=== PATIENT | female | born 1990 | race Caucasian/White ===

== ENCOUNTER 2018-09-16 09:20 | Emergency (ER) | payer BC ==
[2018-09-16] MEDS ORDERED: MORPHINE SULFATE 10 MG/ML INJ IV ONE (10:18)
--- NOTE | 2018-09-16 10:21 | ER Document Report ---
ED GI/ - General Chief Complaint: Lower Abdominal Pain Stated Complaint: ABDOMINAL PAIN Time Seen by Provider: 09/16/18 10:06 Primary Care Provider: DEDE CHUN MD [Primary Care Provider] - Follow up as needed Information source: Patient Notes: Patient is a 27-year-old female that presents today with some suprapubic nonradiating abdominal "labor pains" starting this morning. She states nausea with vomiting. She denies any fevers, dysuria, flank pain, diarrhea, or vaginal discharge. Patient has a Mirena and does not believe she is . No previous history of pain like this in the past. It is better when she sits up and worse when she lays flat. TRAVEL OUTSIDE OF THE [place] IN LAST 30 DAYS: No - HPI Sexual history: Active - Related Data Allergies/Adverse Reactions: No Known Allergies Allergy (Verified 09/16/18 09:21) Past Medical History - Social History Smoking Status: Former Smoker Family History: Reviewed & Not Pertinent Patient has suicidal ideation: No Patient has homicidal ideation: No Renal/ Medical History: Denies: Hx Peritoneal Dialysis Past Surgical History: Reports: Hx Tonsillectomy Review of Systems - Review of Systems Constitutional: denies: Fever EENT: denies: Eye discharge, Nose discharge Cardiovascular: denies: Chest pain, Palpitations Respiratory: denies: Short of breath Gastrointestinal: Vomiting. denies: Diarrhea Genitourinary: denies: Dysuria Skin: denies: Rash Neurological/Psychological: Other - no slurred speech -: Yes All other systems reviewed and negative Physical Exam - Vital signs Vitals: Temp Pulse Resp BP Pulse Ox 98.6 F 93 15 128/67 H 98 09/16/18 09:25 09/16/18 09:25 09/16/18 09:25 09/16/18 09:25 09/16/18 09:25 Notes: Reviewed vital signs and nursing note as charted by RN. CONSTITUTIONAL: Alert and oriented and responds appropriately to questions. Well-appearing; well-nourished HEAD: Normocephalic; atraumatic EYES: Sclerae non-icteric CARD: Regular rate and rhythm; no murmurs; symmetric distal pulses RESP: Normal chest excursion without splinting or tachypnea; breath sounds clear and equal bilaterally ABD/GI: Normal bowel sounds; non-distended; soft, tender to palpation of the suprapubic region without any rebound or guarding. No distinct right lower quadrant tenderness BACK: The back appears normal and is non-tender to palpation EXT: Normal ROM in all joints; non-tender to palpation; no edema SKIN: No acute lesions noted NEURO: CN 2-12 intact; 5/5 bilateral upper and lower extremity strength with sensation intact to light touch PSYCH: The patient's mood and manner are appropriate. Grooming and personal hygiene are appropriate. Course - Re-evaluation Re-evalutation: 09/16/18 10:21 Given the above history and physical examination I will provide pain medications, obtain a urine analysis and test, basic labs, perform a t ransvaginal ultrasound, as well as possibly a pelvic examination. Patient has no distinct right lower quadrant tenderness so I do believe acute appendicitis to be less likely than a possible ovarian cyst and/or rupture. 09/16/18 11:52 Labs unremarkable. Patient's pain is improved. We are awaiting ultrasound and pelvic examination. 09/16/18 12:39 Pelvic examination shows no obvious external or internal lesions. No cervical motion tenderness. No obvious palpable adnexal masses or tenderness. 09/16/18 14:12 Ultrasound as recorded. Pain is better but still present. Pelvic labs as recorded. CT scan will be performed. If this is negative, patient will be discharged home with strict return precautions. 09/16/18 14:24 Ultrasound as recorded. Patient has been taken to CT scan. 09/16/18 15:09 CT scan as recorded. Patient states her pain is almost completely resolved. Patient has chicken next to her bed that she is wanting to eat at this time. Repeat examination shows no focal tenderness at this time. CT does not visualize the appendix but there is no periappendicular inflammation appreciated. White count as recorded. Given the above extensive history and physical examination and observation for 5 hours, patient will be discharged home with strict return precautions and expedited follow-up to her primary care physician. Patient has been invited to return here in 24 hours for reevaluation. - Vital Signs Vital signs: Temp Pulse Resp BP Pulse Ox 98.6 F 93 15 128/67 H 98 09/16/18 09:25 09/16/18 09:25 09/16/18 09:25 09/16/18 09:25 09/16/18 09:25 - Laboratory Result Diagrams: 09/16/18 10:44 09/16/18 10:44 Laboratory results interpreted by me: 09/16/18 10:44 Seg Neutrophils % 80.3 H Discharge - Discharge Clinical Impression: Lower abdominal pain Condition: Good Disposition: HOME, SELF-CARE Additional Instructions: Come back immediately for any worsening pain, change in location or quality of pain, fevers or vomiting, difficulty or pain with urination, or any other acute problems. We advise you to return in 24 hours for abdominal recheck as discussed. Referrals: DEDE CHUN MD [Primary Care Provider] - Follow up as needed
[2018-09-16 10:33] LABS: APPEARANCE,URINE SLIGHTLY-CLOUDY; BILIRUBIN,URINE NEGATIVE (NEGATIVE); COLOR,URINE YELLOW; GLUCOSE, URINE NEGATIVE (NEGATIVE); KETONES,URINE NEGATIVE (NEGATIVE); LEUKOCYTE ESTERASE,URINE NEGATIVE (NEGATIVE); NITRITE,URINE NEGATIVE (NEGATIVE); PROTEIN,URINE NEGATIVE (NEGATIVE); URINE SPECIFIC GRAVITY 1.026; UROBILINOGEN,URINE NEGATIVE mg/dL (<2.0)
[2018-09-16 11:08] LABS: ABSOLUTE LYMPHOCYTES (AUTO) 1.4 10^3/uL (0.5-4.7); ABSOLUTE MONOCYTES (AUTO) 0.5 10^3/uL (0.1-1.4); ABSOLUTE NEUT (AUTO) 8.1 10^3/uL (1.7-8.2); BASOPHILS % (AUTO) 0.1 % (0-2); EOSINOPHILS % (AUTO) 0.3 % (0-6); HEMATOCRIT 39.1 % (36.0-47.0); HEMOGLOBIN 13.7 g/dL (12.0-15.5); LYMPHOCYTES % (AUTO) 13.9 % (13-45); MEAN CORPUSCULAR HEMOGLOBIN 32.8 pg (27.0-33.4); MEAN CORPUSCULAR VOLUME 94 fl (80-97); MONOCYTES % (AUTO) 5.4 % (3-13); PLATELET COUNT 234 10^3/uL (150-450); RED BLOOD COUNT 4.17 10^6/uL (3.72-5.28); RED CELL DISTRIBUTION WIDTH 12.7 % (11.5-14.0); SEGMENTED NEUTROPHILS % (AUTO) 80.3 % (42-78); TOTAL CELLS COUNTED % (AUTO) 100 %; WHITE BLOOD COUNT 10.1 10^3/uL (4.0-10.5)
[2018-09-16 11:23] LABS: ANION GAP 12 (5-19); BLOOD UREA NITROGEN 16 mg/dL (7-20); CALCIUM 9.6 mg/dL (8.4-10.2); CARBON DIOXIDE 23 mmol/L (22-30); CHLORIDE 106 mmol/L (98-107); GLUCOSE 94 mg/dL (75-110); POTASSIUM 4.7 mmol/L (3.6-5.0)
[2018-09-16 12:14] LABS: BACTERIA (WET MOUNT) 3+ BACTERIA SEEN; EPITHELIALS (WET MOUNT) 3+ EPITHELIALS SEEN; RBCS (WET MOUNT) RARE RBCS SEEN; T.VAGINALIS (WET MOUNT) NO TRICHOMONAS SEEN; WBCS (WET MOUNT) 3+ WBCS SEEN; YEAST (WET MOUNT) NO YEAST SEEN
[2018-09-16 13:44] LABS: CHLAM PCR NOT DETECTED (NOT DETECT); GON PCR NOT DETECTED (NOT DETECT)
--- NOTE | 2018-09-16 13:57 | RADIOLOGY REPORT (SQ) ---
EXAM DESCRIPTION: U/S NON OB PEL TV W/DOPPLER COMPLETED DATE/TIME: 09/16/2018 1:39 pm REASON FOR STUDY: 37; pelvic pain female COMPARISON: None. TECHNIQUE: Grayscale images acquired of the pelvis via transvaginal approach and recorded on PACS. A dditional selected color Doppler and spectral images recorded. LIMITATIONS: None. FINDINGS: UTERUS: Measures 8.3 x 4.3 x 5.4 cm. No focal myometrial mass was seen. ENDOMETRIAL STRIPE: The endometrium measures 6 mm in double wall thickness. An intrauterine device i s noted at the endometrial canal. CERVIX: Measures 3.4 cm in length. RIGHT OVARY AND DOPPLER: Measures 2.3 x 1.7 x 2.4 cm. Flow by Doppler was shown to the right ovary. LEFT OVARY AND DOPPLER: Measures 4.3 x 1.6 x 3.9 cm. Flow by Doppler was shown to the left ovary. FREE FLUID: None noted. IMPRESSION: No acute findings on transvaginal pelvic ultrasound. TECHNICAL DOCUMENTATION: JOB ID: [id number] [id number] 2010 [employer]- All Rights Reserved Rev-12/16 Reading location - IP/workstation name: [email or web address]
--- NOTE | 2018-09-16 15:04 | RADIOLOGY REPORT (SQ) ---
EXAM DESCRIPTION: CT ABD/PELVIS WITH IV ONLY COMPLETED DATE/TIME: 09/16/2018 2:31 pm REASON FOR STUDY: 37, lower pelvic pain , bilateral lower quadrants pain. COMPARISON: None. TECHNIQUE: CT scan of the abdomen and pelvis performed using helical scanning technique with dynamic intravenous contrast injection. No oral contrast. Images reviewed with lung, soft tissue, and bone windows. Reconstructed coronal and sagittal MPR images reviewed. Delayed images for evaluation of the urinary system also acquired. All images stored on PACS. All CT scanners at this facility use dose modulation, iterative reconstruction, and/or weight based d osing when appropriate to reduce radiation dose to as low as reasonably achievable (ALARA). [facility]: Dose Right [facility]: CareDose [facility]: Dose Right [facility]: Teradose 4D [facility]: Countdown To Buy CONTRAST TYPE AND DOSE: contrast/concentration: Isovue 350.00 mg/ml; Total Contrast Delivered: 63.0 ml; Total Saline Delivered: 65.0 ml RENAL FUNCTION: Creatinine 0.62 RADIATION DOSE: CT Rad equipment meets quality standard of care and radiation dose reduction techniq ues were employed. CTDIvol: 5.0 - 5.5 mGy. DLP: 542 mGy-cm.. LIMITATIONS: None. FINDINGS: LOWER CHEST: No consolidation or pleural effusion. LIVER: Normal size. No masses. No dilated ducts. SPLEEN: Normal size. No focal lesions. PANCREAS: No significant calcifications. No adjacent inflammation or peripancreatic fluid collections . Pancreatic duct not dilated. GALLBLADDER: Present. ADRENAL GLANDS: No significant masses or asymmetry. RIGHT KIDNEY AND URETER: No solid masses. No significant calcifications. No hydronephrosis or hyd roureter. LEFT KIDNEY AND URETER: No solid masses. No significant calcifications. No hydronephrosis or hydr oureter. AORTA AND VESSELS: No abdominal aortic aneurysm. RETROPERITONEUM: No retroperitoneal adenopathy, hemorrhage or masses. BOWEL AND PERITONEAL CAVITY: No dilated bowel loops or inflammatory changes. No free air. APPENDIX: Not visualized. PELVIS: An intrauterine device is seen at the uterus. Small amount free fluid. Partially distended bladder. ABDOMINAL WALL: No hernias. BONES: No acute findings. IMPRESSION: Small amount of free pelvic fluid. Otherwise, no acute findings within the abdomen or p gerard. TECHNICAL DOCUMENTATION: JOB ID: [id number] [facility] Quality ID # [id number]: Final reports with documentation of one or more dose reduction techniques (e.g., Au tomated exposure control, adjustment of the mA and/or kV according to patient size, use of iterative reconstruction technique) 2010 [employer]- All Rights Reserved Reading location - IP/workstation name: [email or web address]
[2018-09-16 15:34] VITALS: BP 113/61
== END 2018-09-16 15:34 | disposition home or self-care (01) ==
LOC: ER 09:20
DX: R10.30 Lower abdominal pain, unspecified (principal); Z97.5 Presence of (intrauterine) contraceptive device; R11.2 Nausea with vomiting, unspecified
CPT/HCPCS: 99284; 96374; 36415; 87210; 85025; 81025; 80048; 81001; 87491; 87591; 76830; 93976; 74177; J2270